=== PATIENT | male | born 1995 | race Caucasian/White ===

== ENCOUNTER 2022-07-01 01:19 | Emergency (ER) | payer OTHER ==
[2022-07-01 02:13] VITALS: BP 145/96; PULSE 96; RESP 20; TEMP 97.6; BMI 33.0
[2022-07-01] MEDS ORDERED: KETOROLAC TROMETHAMINE 15 MG/ML VIAL IM ONE (02:29)
[2022-07-01] MEDS ORDERED: KETOROLAC TROMETHAMINE 15 MG/ML VIAL ONE (02:35)
== END 2022-07-01 03:25 | disposition home or self-care (01) ==
LOC: JER 01:19
PROC: 3E0233Z Introduction of Anti-inflammatory into Muscle, Percutaneous Approach (ICD-10-PCS; principal; 2022-07-01)
DX: M25.512 Pain in left shoulder (principal)
CPT/HCPCS: 73030-TC-LT-FY; 99284-25